=== PATIENT | female | born 1970 | race Caucasian/White ===

== ENCOUNTER → 2021-09-23 11:21 | Outpatient (CLI) | payer OTHER, SELFPAY ==
--- NOTE | 2021-09-23 11:35 | XR_ITS ---
FINAL REPORT CLINICAL HISTORY: right ankle injury FINDINGS: RIGHT ANKLE 3 views of the right ankle were obtained. There is no acute fracture or dislocation. The mortise is intact. 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 Visualized joint spaces are normally aligned. Soft tissues are unremarkable. IMPRESSION: No acute bony abnormality. Reviewed, Interpreted and Dictated by Jaya Lucas MD Transcribed by Mary Johnston Authenticated by Jaya Lucas MD on 09/23/2021 01:37:[address] [facility]
--- NOTE | 2021-09-23 13:59 | XR_ITS ---
FINAL REPORT CLINICAL HISTORY: PAIN FINDINGS: RIGHT FOOT Three views demonstrate no acute fracture or dislocation. The joint spaces appear normal. The visualized bony structures are well aligned. 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 No soft tissue abnormality is seen. IMPRESSION: No acute bony abnormality. Reviewed, Interpreted and Dictated by Jaya Lucas MD Transcribed by Mary Johnston Authenticated by Jaya Lucas MD on 09/23/2021 03:26:36 PM [facility]
== END ==
PROVIDERS: PCP Family Medicine; Visit Provider Emergency Medicine
DX: S99.911A Unspecified injury of right ankle, initial encounter (principal); M79.671 Pain in right foot
CPT/HCPCS: 73610; 73630

== ENCOUNTER → 2021-09-23 14:06 | Outpatient (CLI) | payer SELFPAY | PROVIDERS: Visit Provider Emergency Medicine | DX: Z79.899 Other long term (current) drug therapy (principal) ==

== ENCOUNTER → 2021-10-01 08:55 | Outpatient (CLI) | payer OTHER, SELFPAY ==
--- NOTE | 2021-10-01 08:55 | MR_ITS ---
FINAL REPORT CLINICAL HISTORY: right ankle pain/injury 09-17-21, lateral pain and swelling FINDINGS: Multiplanar MR imaging of the right ankle was performed with and without contrast. The bony structures are intact without evidence of fracture, bone bruise or marrow edema. No osteochondral lesion is identified. There is a tear of the anterior talofibular ligament. The calcaneofibular ligament is abnormal, favor a partial tear. There is contrast enhancement in these regions consistent with inflammatory change. There is a partial tear of the deltoid ligament. The flexor and extensor tendons are intact. The posterior plantar aponeurosis is intact. Small subtalar joint effusion is seen. The musculature is intact. There is no evidence of soft tissue mass or cyst. IMPRESSION: Tears of the anterior talofibular ligament, calcaneofibular ligament, and deltoid ligament as detailed above. Reviewed, Interpreted and Dictated by Josh Abraham III, MD Transcribed by Kalani Olivarez Authenticated by Josh Abraham III, MD on 10/01/2021 11:27:[address] [facility]
== END ==
PROVIDERS: PCP Family Medicine; Visit Provider Podiatrist
DX: M25.571 Pain in right ankle and joints of right foot (principal); M25.371 Other instability, right ankle; M76.71 Peroneal tendinitis, right leg; S99.911A Unspecified injury of right ankle, initial encounter
CPT/HCPCS: 73723; A9576